=== PATIENT | female | born 1985 | race Caucasian/White ===

== ENCOUNTER 2019-03-31 19:07 | Emergency (ER) | payer BC ==
[~2019-03-31] VITALS: Ht 157.5 cm; Wt 81.6 kg
[2019-03-31] MEDS ORDERED: IV NORMAL SALINE 1,000ML 1,000 ML IV SCH (19:29)
[2019-03-31] MEDS ORDERED: ONDANSETRON PF 4 MG/2 ML VIAL. IV ONE (19:45)
[2019-03-31 19:58] LABS: BASO # 0.1 x10^3/uL (0.0-0.2); BASO % 1 % (0-3); EOS # 0.3 x10^3/uL (0.0-0.7); EOS % 3 % (0-3); HEMATOCRIT 40.6 % (36.0-47.0); HEMOGLOBIN 14.1 g/dL (12.0-15.5); LYMPH # 4.2 x10^3/uL (1.0-4.8); LYMPH % 42 % (24-48); MEAN CORPUSCULAR HEMOGLOBIN 32 pg (25-35); MEAN CORPUSCULAR HGB CONC 35 g/dL (31-37); MEAN CORPUSCULAR VOLUME 91 fL (79-100); MONO # 0.7 x10^3/uL (0.0-1.1); MONO % 7 % (0-9); NEUT # 4.6 x10^3uL (1.8-7.7); NEUT % 47 % (31-73); PLATELET COUNT 334 x10^3/uL (140-400); RED BLOOD COUNT 4.47 x10^6/uL (3.50-5.40); RED CELL DISTRIBUTION WIDTH 12.5 % (11.5-14.5); WHITE BLOOD COUNT 9.9 x10^3/uL (4.0-11.0)
[2019-03-31] MEDS ORDERED: IOHEXOL 300 MG/ML 75 ML VIAL. IV ONE (20:00)
[2019-03-31 20:03] LABS: CLARITY,URINE CLEAR; COLOR,URINE STRAW
[2019-03-31 20:04] LABS: BACTERIA,URINE 0 /HPF (0-FEW); BILIRUBIN,URINE NEG (NEG); GLUCOSE,URINE NEG (NEG); NITRITE,URINE NEG (NEG); RBC,URINE 0 /HPF (0-2); SQUAMOUS EPITHELIAL CELL,UR OCC /LPF; UROBILINOGEN,URINE 0.2 mg/dL (0.2 mg/dL); WBC,URINE 0 /HPF (0-4)
[2019-03-31 20:22] VITALS: BP 115/65
[2019-03-31 20:23] LABS: ALBUMIN 3.9 g/dL (3.4-5.0); ALBUMIN/GLOBULIN RATIO 1.2 (1.0-1.7); CALCIUM 8.8 mg/dL (8.5-10.1); CREATININE 0.8 mg/dL (0.6-1.0); GFR 83.7; POTASSIUM 3.8 mmol/L (3.5-5.1); TOTAL BILIRUBIN 0.3 mg/dL (0.2-1.0); TOTAL PROTEIN 7.1 g/dL (6.4-8.2)
[2019-03-31] MEDS ORDERED: KETOROLAC 30 MG/ML VIAL. ONE (20:52)
[2019-03-31] MEDS ORDERED: KETOROLAC 30 MG/ML VIAL. IV ONE (21:00)
--- NOTE | 2019-03-31 21:03 | RAD ---
EXAM: Abdomen and pelvis CT with intravenous contrast. HISTORY: Pain. Nausea. Diarrhea. TECHNIQUE: Computed tomographic images of the abdomen and pelvis were obtained following the administration of 80 cc Omnipaque 300 intravenous contrast. Multiplanar reformatting was performed. *One or more of the following individualized dose reduction techniques were utilized for this examination: 1. Automated exposure control. 2. Adjustment of the mA and/or kV according to patient size. 3. Use of iterative reconstruction technique. COMPARISON: None. FINDINGS: Evaluation of the lower thorax demonstrates minimal posterior dependent and basilar atelectasis. No hepatic lesion is seen. The gallbladder is surgically absent. The pancreas, spleen and adrenal glands are unremarkable. The renal collecting system is prominent, without evidence of obstruction. This is likely due to the hydration status the patient. No abnormally dilated or thickened loop of bowel seen. There is no appendicitis. There is no obstruction. The uterus is unremarkable. There are multiple ovarian follicles. There is a dominant right ovarian follicle/likely cyst measuring 1.4 cm. There is trace pelvic free fluid. There is no lymphadenopathy. There is no suspicious osseous lesion. There is a suspected tiny hemangioma within the inferior aspect of L4 and bone island within T12. IMPRESSION: No acute abdominal or pelvic finding. Electronically signed by: Kristi Elmore MD (03/31/2019 9:00 PM) [facility]
[2019-03-31] MEDS ORDERED: DIPH1TAB PO (21:11)
[2019-03-31] MEDS ORDERED: ONDA4TAB7 PO (21:11)
--- NOTE | 2019-03-31 21:14 | PHYS DOC ---
Past History Past Medical History: Anxiety Past Surgical History: Cholecystectomy, Tonsillectomy, Tubal ligation, Other Alcohol Use: Rarely Drug Use: None Adult General Chief Complaint Chief Complaint: ABDOMINAL PAIN HPI HPI Patient is a 33-year-old female who presents with complaint of right upper quadrant abdominal pain that has been intermittent for the last couple of days along with diarrhea. Patient states that she has had a few episodes of diarrhea each day since onset. She admits to nausea but is had no vomiting. She states that at its worst the pain is been an 8 out of 10 but currently she states is only a 1-2 out of 10. She describes it as just vague discomfort at this time but states that when it comes, it's like a knife going into her abdomen. She does indicate that pain is worsened with certain movements and very deep breathing when the pain is present.[] Review of Systems Review of Systems Constitutional: Denies fever or chills [] Respiratory: Denies cough or shortness of breath [] Cardiovascular: No additional information not addressed in HPI [] GI: Complains of abdominal pain with nausea and diarrhea [] Integument: Denies rash or skin lesions [] Neurologic: Denies headache, focal weakness or sensory changes [] All other systems were reviewed and found to be within normal limits, except as documented in this note. Current Medications Current Medications Current Medications Medications (Trade) Dose Ordered Sig/Cintia Start Time Stop Time Status Last Admin Dose Admin Fentanyl Citrate (Fentanyl 2ml Vial) 50 mcg 1X ONCE 03/31/19 21:00 03/31/19 21:00 DC Iohexol (Omnipaque 300 Mg/ml) 75 ml 1X ONCE 03/31/19 20:00 03/31/19 20:01 DC 03/31/19 20:34 75 ML Ketorolac Tromethamine (Toradol 30mg Vial) 30 mg STK-MED ONCE 03/31/19 20:52 03/31/19 20:53 DC Ondansetron HCl (Zofran) 4 mg 1X ONCE 03/31/19 19:45 03/31/19 19:46 DC 03/31/19 19:46 4 MG Sodium Chloride 1,000 ml @ 1,000 mls/hr Q1H 03/31/19 19:29 03/31/19 20:28 DC 03/31/19 19:45 1,000 MLS/HR Allergies Allergies Allergies Coded Allergies Type Severity Reaction Last Updated Verified No Known Drug Allergies 03/31/19 No Physical Exam Physical Exam Constitutional: Well developed, well nourished, no acute distress, non-toxic appearance. [] HENT: Normocephalic, atraumatic, bilateral external ears normal, oropharynx moist, no oral exudates, nose normal. [] Eyes: PERRLA, EOMI, conjunctiva normal, no discharge. [] Neck: Normal range of motion, no tenderness, supple, no stridor. [] Cardiovascular: Regular rate and rhythm[] Lungs & Thorax: Bilateral breath sounds clear to auscultation [] Abdomen: Bowel sounds normal, soft, no tenderness. [] Skin: Warm, dry, no erythema, no rash. [] Extremities: No tenderness, no cyanosis, no clubbing, ROM intact. [] Neurologic: Alert and oriented X 3, no focal deficits noted. [] Current Patient Data Vital Signs Vital Signs Date Time Temp Pulse Resp B/P (MAP) Pulse Ox O2 Delivery O2 Flow Rate FiO2 03/31/19 20:22 74 18 115/65 (82) 100 Room Air 03/31/19 19:15 98.0 Lab Results Laboratory Tests Test 03/31/19 19:15 03/31/19 19:26 03/31/19 19:45 Urine Collection Type Unknown Urine Color Straw Urine Clarity Clear Urine pH 5.0 Urine Specific Tebbetts <=1.005 Urine Protein Neg (NEG-TRACE) Urine Glucose (UA) Neg mg/dL (NEG) Urine Ketones (Stick) Neg mg/dL (NEG) Urine Blood Neg (NEG) Urine Nitrite Neg (NEG) Urine Bilirubin Neg (NEG) Urine Urobilinogen Dipstick 0.2 mg/dL (0.2 mg/dL) Urine Leukocyte Esterase Neg (NEG) Urine RBC 0 /HPF (0-2) Urine WBC 0 /HPF (0-4) Urine Squamous Epithelial Cells Occ /LPF Urine Bacteria 0 /HPF (0-FEW) POC Urine HCG, Qualitative hcg negative (Negative) White Blood Count 9.9 x10^3/uL (4.0-11.0) Red Blood Count 4.47 x10^6/uL (3.50-5.40) Hemoglobin 14.1 g/dL (12.0-15.5) Hematocrit 40.6 % (36.0-47.0) Mean Corpuscular Volume 91 fL (79-100) Mean Corpuscular Hemoglobin 32 pg (25-35) Mean Corpuscular Hemoglobin Concent 35 g/dL (31-37) Red Cell Distribution Width 12.5 % (11.5-14.5) Platelet Count 334 x10^3/uL (140-400) Neutrophils (%) (Auto) 47 % (31-73) Lymphocytes (%) (Auto) 42 % (24-48) Monocytes (%) (Auto) 7 % (0-9) Eosinophils (%) (Auto) 3 % (0-3) Basophils (%) (Auto) 1 % (0-3) Neutrophils # (Auto) 4.6 x10^3uL (1.8-7.7) Lymphocytes # (Auto) 4.2 x10^3/uL (1.0-4.8) Monocytes # (Auto) 0.7 x10^3/uL (0.0-1.1) Eosinophils # (Auto) 0.3 x10^3/uL (0.0-0.7) Basophils # (Auto) 0.1 x10^3/uL (0.0-0.2) Sodium Level 139 mmol/L (136-145) Potassium Level 3.8 mmol/L (3.5-5.1) Chloride Level 103 mmol/L (98-107) Carbon Dioxide Level 25 mmol/L (21-32) Anion Gap 11 (6-14) Blood Urea Nitrogen 7 mg/dL (7-20) Creatinine 0.8 mg/dL (0.6-1.0) Estimated GFR (Cockcroft-Gault) 83.7 BUN/Creatinine Ratio 9 (6-20) Glucose Level 86 mg/dL (70-99) Calcium Level 8.8 mg/dL (8.5-10.1) Total Bilirubin 0.3 mg/dL (0.2-1.0) Aspartate Amino Transferase (AST) 14 U/L (15-37) L Alanine Aminotransferase (ALT) 22 U/L (14-59) Alkaline Phosphatase 73 U/L (46-116) Total Protein 7.1 g/dL (6.4-8.2) Albumin 3.9 g/dL (3.4-5.0) Albumin/Globulin Ratio 1.2 (1.0-1.7) Lipase 111 U/L (73-393) EKG EKG [] Radiology/Procedures Radiology/Procedures [] Impressions: PROCEDURE: CT ABD PELV W/ IV CONTRST ONLY EXAM: Abdomen and pelvis CT with intravenous contrast. HISTORY: Pain. Nausea. Diarrhea. TECHNIQUE: Computed tomographic images of the abdomen and pelvis were obtained following the administration of 80 cc Omnipaque 300 intravenous contrast. Multiplanar reformatting was performed. *One or more of the following individualized dose reduction techniques were utilized for this examination: 1. Automated exposure control. 2. Adjustment of the mA and/or kV according to patient size. 3. Use of iterative reconstruction technique. COMPARISON: None. FINDINGS: Evaluation of the lower thorax demonstrates minimal posterior dependent and basilar atelectasis. No hepatic lesion is seen. The gallbladder is surgically absent. The pancreas, spleen and adrenal glands are unremarkable. The renal collecting system is prominent, without evidence of obstruction. This is likely due to the hydration status the patient. No abnormally dilated or thickened loop of bowel seen. There is no appendicitis. There is no obstruction. The uterus is unremarkable. There are multiple ovarian follicles. There is a dominant right ovarian follicle/likely cyst measuring 1.4 cm. There is trace pelvic free fluid. There is no lymphadenopathy. There is no suspicious osseous lesion. There is a suspected tiny hemangioma within the inferior aspect of L4 and bone island within T12. IMPRESSION: No acute abdominal or pelvic finding. Electronically signed by: Kristi Elmore MD (03/31/2019 9:00 PM) [facility] Course & Med Decision Making Course & Med Decision Making Pertinent Labs and Imaging studies reviewed. (See chart for details) [] Dragon Disclaimer Dragon Disclaimer This electronic medical record was generated, in whole or in part, using a voice recognition dictation system. Departure Departure: Impression: Primary Impression: Gastroenteritis Disposition: 01 HOME, SELF-CARE Condition: STABLE Referrals: PCP,UNKNOWN (PCP) Patient Instructions: Viral Gastroenteritis Scripts Diphenoxylate Hcl/Atropine (LOMOTIL TABLET) 1 Each Tablet 1 TAB PO TID PRN for DIARRHEA, #15 TAB Prov: STEPHANIE RICKETTS Jr. DO 03/31/19 Ondansetron Hcl (ZOFRAN) 4 Mg Tablet 4 MG PO Q6HRS PRN for NAUSEA, #10 TAB Prov: STEPHANIE RICKETTS Jr. DO 03/31/19 STEPHANIE RICKETTS Jr. DO Mar 31, 2019 21:14
[2019-03-31] MEDS ORDERED: DIPHENOXYLATE/ATROPINE TABLET. PO ONE (21:30)
== END 2019-03-31 21:25 | disposition home or self-care (01) ==
LOC: ER 19:07
DX: K52.9 Noninfective gastroenteritis and colitis, unspecified (principal); F41.9 Anxiety disorder, unspecified; Z90.49 Acquired absence of other specified parts of digestive tract; Z98.51 Tubal ligation status
CPT/HCPCS: 36415; 74177; 80053; 81001; 81025; 83690; 85025; 96361; 96374; 96375; 99285; J1885; J2405; Q9967; J7030

== ENCOUNTER 2019-05-05 16:16 | Emergency (ER) | payer BC ==
[~2019-05-05] VITALS: Ht 157.5 cm; Wt 81.6 kg
[~2019-05-05 16:16] MED LIST: DIPH1TAB PO; ONDA4TAB7 PO
[2019-05-05 16:25] VITALS: BP 126/74
[2019-05-05] MEDS ORDERED: HYDR-3165 PO (16:50)
[2019-05-05] MEDS ORDERED: HYDR30CR61 TP (16:50)
[2019-05-05] MEDS ORDERED: LIDO15SO2 TOP (16:50)
--- NOTE | 2019-05-05 16:51 | PHYS DOC ---
Past History Past Medical History: Anxiety Past Surgical History: Cholecystectomy, Tonsillectomy, Tubal ligation, Other Alcohol Use: Rarely Drug Use: None Adult General Chief Complaint Chief Complaint: HEMORRHOIDS HPI HPI Patient is a 33-year-old female who presents with complaint of hemorrhoids for the last couple of weeks. Patient states that she has had intermittent bleeding from the hemorrhoids and she has tried just about every [id number] remedy that she can think to try without significant improvement. She rates pain in her bottom as moderate and states that pain is worsened when she sits down. She also states that pain is worsened with bowel movements.[] Review of Systems Review of Systems Constitutional: Denies fever or chills [] Respiratory: Denies cough or shortness of breath [] Cardiovascular: No additional information not addressed in HPI [] GI: Denies abdominal pain, nausea, vomiting or diarrhea. Positive hemorrhoids. [] Integument: Denies rash or skin lesions [] Allergies Allergies Allergies Coded Allergies Type Severity Reaction Last Updated Verified No Known Drug Allergies 03/31/19 No Physical Exam Physical Exam Constitutional: Well developed, well nourished, no acute distress, non-toxic appearance. [] Cardiovascular:Heart rate regular rhythm, no murmur [] Lungs & Thorax: Bilateral breath sounds clear to auscultation [] Abdomen: Bowel sounds normal, soft. Rectal exam performed with nurse petroleum engineer present and demonstrates small thrombosed hemorrhoid with small amount of bleeding present. [] Skin: Warm, dry, no erythema, no rash. [] EKG EKG [] Radiology/Procedures Radiology/Procedures [] Course & Med Decision Making Course & Med Decision Making Pertinent Labs and Imaging studies reviewed. (See chart for details) [] Dragon Disclaimer Dragon Disclaimer This electronic medical record was generated, in whole or in part, using a voice recognition dictation system. Departure Departure: Impression: Primary Impression: Thrombosed hemorrhoids Disposition: HOME, SELF-CARE Condition: STABLE Referrals: PCP,NO (PCP) Patient Instructions: Hemorrhoids Scripts Lidocaine HCl (Lidocaine HCl Viscous) 15 Ml Solution 1 ML TOP Q2HR PRN for PAIN, #100 ML Prov: STEPHANIE RICKETTS Jr. DO 05/05/19 Hydrocodone Bit/Acetaminophen (NORCO 5-325 TABLET) 1 Each Tablet 1 TAB PO PRN Q6HRS PRN for PAIN, #12 TAB 0 Refills Prov: STEPHANIE RICKETTS Jr. DO 05/05/19 Hydrocortisone (ANUSOL-HC) 30 Gm Cream..g. 1 CHRISTA TP BID for hemorrhoids, #30 GM 1 Refill Prov: STEPHANIE RICKETTS Jr. DO 05/05/19 STEPHANIE RICKETTS Jr. DO May 05, 2019 16:51
== END 2019-05-05 17:02 | disposition home or self-care (01) ==
LOC: ER 16:16
DX: K64.5 Perianal venous thrombosis (principal)
CPT/HCPCS: 99283

== ENCOUNTER 2020-08-08 12:25 | Emergency (ER) | payer BC ==
[~2020-08-08] VITALS: Ht 157.5 cm; Wt 82.0 kg
[~2020-08-08 12:25] MED LIST changes: +HYDR-3165 PO; +HYDR30CR61 TP; +LIDO20SO10 TOP
--- NOTE | 2020-08-08 12:59 | PHYS DOC ---
Past History Past Medical History: Anxiety Past Surgical History: Cholecystectomy, Tubal ligation Smoking: Cigarettes Alcohol Use: Occasionally Drug Use: None General Adult EDM: Chief Complaint: ABDOMINAL PAIN HPI: HPI: Patient is a 35 y/o female with a history of tubal ligation, who presents to the ED with sharp left suprapubic and flank pain that started yesterday along with her menstrual period. She also states she has had heavy bleeding where she bled through her tampon overnight which is unusual for her. Associated nausea. She reports that pain radiates around her lower abdomen to her back. Pain is worsened after she sits for long periods of time, denies any alleviating factors. Denies any vomiting, chest pain, SOB. Severity rated at a 8/10. Review of Systems: Review of Systems: Constitutional: Denies fever or chills Eyes: Denies redness or eye pain HENT: Denies nasal congestion or sore throat Respiratory: Denies cough or shortness of breath Cardiovascular: Denies chest pain or palpitations GI: Reports lower abdominal pain and nausea, Reports Flank Pain; Denies vomiting : Reports heavy vaginal bleeding, Denies dysuria Musculoskeletal: Denies back pain or joint pain Integument: Denies rash or skin lesions Neurologic: Denies headache, focal weakness or sensory changes Complete systems were reviewed and found to be within normal limits, except as documented in this note. Current Medications: Current Meds: Current Medications Medications (Trade) Dose Ordered Sig/Cintia Start Time Stop Time Status Last Admin Dose Admin Ketorolac Tromethamine (Toradol 15mg Vial) 15 mg 1X ONCE 08/08/20 13:00 08/08/20 13:01 UNV Ondansetron HCl (Zofran) 4 mg 1X ONCE 08/08/20 13:00 08/08/20 13:01 UNV Sodium Chloride 1,000 ml @ 1,000 mls/hr 1X ONCE 08/08/20 13:00 08/08/20 13:59 UNV Allergies: Allergies: Allergies Uncoded Allergies Type Severity Reaction Last Updated Verified WASP STING Allergy Unknown 08/08/20 Physical Exam: PE: Constitutional: Well developed, well nourished, mild acute distress, non-toxic appearance HENT: Normocephalic, atraumatic Eyes: PERRL, EOMI, conjunctiva normal, no discharge Neck: Normal range of motion, no tenderness, supple Lungs & Thorax: No respiratory distress, equal chest rise and fall Abdomen: Soft, tenderness to palpation on left suprapubic abdomen Skin: Warm, dry, no erythema, no rash Back: No tenderness, Left sided CVA tenderness, + Kingsley's punch on the right Extremities: No tenderness, ROM intact, no edema Genitourinary Exam: Pelvic exam, + cervical motion tenderness, bloody discharge from cervical os and in vaginal canal, no adnexal masses palpated Neurologic: Alert and oriented X 3, normal motor function, normal sensory function, no focal deficits noted Psychologic: Affect normal, judgment normal Current Patient Data: Vital Signs: Vital Signs Date Time Temp Pulse Resp B/P (MAP) Pulse Ox O2 Delivery O2 Flow Rate FiO2 08/08/20 12:33 98.4 75 16 127/93 (104) 100 Radiology/Procedures: Radiology/Procedures: PROCEDURE: US PELVIS W/TV US PELVIS W/TV History: Left adnexa tenderness, menorrhagia Comparison: None. Findings: Multiple transabdominal sonographic images of the pelvis are submitted. Uterus measured 8.4 x 4.5 x 6.3 cm. Right ovary measured 2.6 x 1.4 x 1.7 cm. Left ovary measured 2.7 x 2 x 2.4 cm. There is normal color flow of the ovaries. Transvaginal ultrasound: Multiple transvaginal sonographic images of the pelvis are submitted. There is a hypoechoic lesion with associated septation or adjacent cyst of the anterior vaginal canal, some internal echoes. This in greatest dimension measures about 1.8 x 1.1 x 1.3 cm, no internal vascularity color Doppler imaging. Uterus measured 8.7 x 4.2 x 5.4 cm. Endometrium measured about 0.7 cm in thickness. There is an oblong focus of hypoechogenicity of the lower uterine segment and cervical canal about 1.5 x 0.5 x 0.5 cm in size not associated with significant vascularity color Doppler imaging. Right ovary measured 2.8 x 1.8 x 1.8 cm with normal low resistance vascularity. Left ovary measured 3.1 x 1.6 x 1.3 cm with normal low resistance vascularity. There are small follicles of the bilateral ovaries. No free fluid is demonstrated. Impression: 1. Endometrium is not thickened. There are small follicles of the bilateral ovaries, no free fluid. There is small septated cystic focus of the lower uterine segment and cervical canal likely small collection of fluid or cyst. There is also cluster of slightly complex cysts of the vaginal canal. Electronically signed by: Noel Hercules MD (08/08/2020 1:48 PM) [id number] Course & Med Decision Making: Course & Med Decision Making Pertinent Labs and Imaging studies reviewed. (See chart for details) Patient is a 35 y/o female with a history of tubal ligation who presents to the ED with left suprapubic and flank pain that started last night since her period. Associated nausea and menorrhagia. Pelvic ultrasound reveals complex cysts. Performed pelvic exam, planned for discharge. Patient stable for discharge with outpatient follow-up with PCP. Discussed f indings and plan with patient, who acknowledges understanding and agreement. Dragon Disclaimer: Dragon Disclaimer: This electronic medical record was generated, in whole or in part, using a voice recognition dictation system. Departure Departure: Impression: Primary Impression: Ovarian cyst Qualified Codes: N83.209 - Unspecified ovarian cyst, unspecified side Additional Impression: Menorrhagia Qualified Codes: N92.1 - Excessive and frequent menstruation with irregular cycle Disposition: 01 DC HOME SELF CARE/HOMELESS Condition: STABLE Referrals: ELLIE MCCANN (PCP) Patient Instructions: Menorrhagia, [id number], Ovarian Cyst, [id number] Additional Instructions: Please follow closely with Dr. Milan Polanco Address: [address] [place] [address] [id number], [place] [address] Scripts Hydrocodone Bit/Acetaminophen (NORCO 5-325 TABLET) 1 Each Tablet 0.5-1 TAB PO Q6HRS PRN for PAIN, #10 TAB Prov: NAVI BARRON DO 08/08/20 NAVI BARRON DO Aug 08, 2020 12:59
[2020-08-08] MEDS ORDERED: IV NORMAL SALINE 1,000ML 1,000 ML IV ONE (13:00)
[2020-08-08] MEDS ORDERED: ONDANSETRON PF 4 MG/2 ML VIAL. IVP ONE (13:00)
[2020-08-08] MEDS ORDERED: KETOROLAC 15 MG/ML VIAL. IVP ONE (13:00)
[2020-08-08 13:29] LABS: BILIRUBIN,URINE NEG (NEG); CLARITY,URINE CLEAR; COLOR,URINE STRAW; GLUCOSE,URINE NEG (NEG)
[2020-08-08 13:30] LABS: BACTERIA,URINE 0 /HPF (0-FEW); NITRITE,URINE NEG (NEG); SQUAMOUS EPITHELIAL CELL,UR FEW /LPF; UROBILINOGEN,URINE 0.2 mg/dL (0.2 mg/dL); WBC,URINE OCC /HPF (0-4)
--- NOTE | 2020-08-08 13:51 | RAD ---
US PELVIS W/TV History: Left adnexa tenderness, menorrhagia Comparison: None. Findings: Multiple transabdominal sonographic images of the pelvis are submitted. Uterus measured 8.4 x 4.5 x 6.3 cm. Right ovary measured 2.6 x 1.4 x 1.7 cm. Left ovary measured 2.7 x 2 x 2.4 cm. There is normal color flow of the ovaries. Transvaginal ultrasound: Multiple transvaginal sonographic images of the pelvis are submitted. There is a hypoechoic lesion with associated septation or adjacent cyst of the anterior vaginal canal, some internal echoes. This in greatest dimension measures about 1.8 x 1.1 x 1.3 cm, no internal vascularity color Doppler imaging. Uterus measured 8.7 x 4.2 x 5.4 cm. Endometrium measured about 0.7 cm in thickness. There is an oblong focus of hypoechogenicity of the lower uterine segment and cervical canal about 1.5 x 0.5 x 0.5 cm in size not associated with significant vascularity color Doppler imaging. Right ovary measured 2.8 x 1.8 x 1.8 cm with normal low resistance vascularity. Left ovary measured 3.1 x 1.6 x 1.3 cm with normal low resistance vascularity. There are small follicles of the bilateral ovaries. No free fluid is demonstrated. Impression: 1. Endometrium is not thickened. There are small follicles of the bilateral ovaries, no free fluid. There is small septated cystic focus of the lower uterine segment and cervical canal likely small collection of fluid or cyst. There is also cluster of slightly complex cysts of the vaginal canal. Electronically signed by: Noel Hercules MD (08/08/2020 1:48 PM) [id number]
[2020-08-08 14:00] LABS: BASO # 0.1 x10^3/uL (0.0-0.2); BASO % 1 % (0-3); EOS # 0.2 x10^3/uL (0.0-0.7); EOS % 2 % (0-3); HEMATOCRIT 43.3 % (36.0-47.0); HEMOGLOBIN 14.8 g/dL (12.0-15.5); LYMPH # 4.1 x10^3/uL (1.0-4.8); LYMPH % 45 % (24-48); MEAN CORPUSCULAR HEMOGLOBIN 32 pg (25-35); MEAN CORPUSCULAR HGB CONC 34 g/dL (31-37); MEAN CORPUSCULAR VOLUME 94 fL (79-100); MONO # 0.6 x10^3/uL (0.0-1.1); MONO % 7 % (0-9); NEUT # 4.2 x10^3uL (1.8-7.7); NEUT % 46 % (31-73); PLATELET COUNT 336 x10^3/uL (140-400); RED BLOOD COUNT 4.62 x10^6/uL (3.50-5.40); RED CELL DISTRIBUTION WIDTH 12.8 % (11.5-14.5); WHITE BLOOD COUNT 9.1 x10^3/uL (4.0-11.0)
[2020-08-08 14:11] LABS: CALCIUM 9.3 mg/dL (8.5-10.1); CREATININE 0.9 mg/dL (0.6-1.0); GFR 72.1; POTASSIUM 3.3 mmol/L (3.5-5.1)
[2020-08-08 14:17] LABS: ALBUMIN 4.2 g/dL (3.4-5.0); ALBUMIN/GLOBULIN RATIO 1.1 (1.0-1.7); TOTAL BILIRUBIN 0.2 mg/dL (0.2-1.0)
[2020-08-08] MEDS ORDERED: POTASSIUM CHLORIDE 20 MEQ TABLET.ER. PO ONE (15:45)
[2020-08-08] MEDS ORDERED: HYDR-3165 PO (17:01)
[2020-08-08 17:10] VITALS: BP 142/89
[2020-08-09 22:06] LABS: CHLAMYDIA PROBE Negative (Negative)
== END 2020-08-08 17:15 | disposition home or self-care (01) ==
LOC: ER 12:25
DX: N83.209 Unspecified ovarian cyst, unspecified side (principal); N92.1 Excessive and frequent menstruation with irregular cycle; F17.210 Nicotine dependence, cigarettes, uncomplicated; Z90.49 Acquired absence of other specified parts of digestive tract; Z98.51 Tubal ligation status; Z91.038 Other insect allergy status
CPT/HCPCS: 36415; 76830; 76856; 80053; 81001; 81025; 83690; 85025; 87491; 87591; 96361; 96374; 96375; 99284; J1885; J2405; J3010; J7030; Q0111

== ENCOUNTER 2020-09-25 20:09 | Emergency (ER) | payer BC ==
[~2020-09-25] VITALS: Ht 157.5 cm; Wt 8.0 kg
--- NOTE | 2020-09-25 20:12 | PHYS DOC ---
Past History Past Medical History: Anxiety, Bronchitis, Depression, Endometriosis, Ovarian Cyst Past Medical History History of dysfunctional uterine bleeding History of personality disorder Past Surgical History: Cholecystectomy, Tubal ligation Smoking: Cigarettes Alcohol Use: Occasionally Drug Use: None General Adult EDM: Chief Complaint: ALTERED MENTAL STATUS HPI: HPI: '.." No.." ...grunts...''' Patient is a 35 year old female who presents with above hx and complaints of mental status change. Patient currently hyperventilating. Patient reportedly very anxious on arrival paramedics and a poor historian. Currently a very poor historian. Does cross-react to noxious stimuli. Does move all extremities. Pt. mental status cleared after observation and fluids in the emergency department. Reportedly patient had an argument with his significant other before onset of symptoms. Patient declined elaboration of events prior to her symptoms.. Patient requesting discharge home. Patient denies she lives in an unsafe environment. Patient denies any history of domestic abuse. Patient has past medical history of anxiety disorder and panic attacks. Per family history patient has been diagnosed possible borderline personality. No history of recent travel. No specific ill contacts. No history of trauma. Patient has past history of ovarian cyst, menorrhagia, endometrosis. The patient does continue to smoke. Patient normally follows with Dr. Rome. Review of Systems: Review of Systems: Pt. initlal ROS symptoms limit due to pt. altered mental status. Constitutional: Denies fever or chills Eyes: Denies change in visual acuity HENT: Denies nasal congestion or sore throat Respiratory: Denies cough or shortness of breath Cardiovascular: Denies chest pain or edema GI: Denies abdominal pain, nausea, vomiting, bloody stools or diarrhea : Denies dysuria Musculoskeletal: Denies back pain or joint pain Integument: Denies rash Neurologic: Denies headache, focal weakness or sensory changes Endocrine: Denies polyuria or polydipsia Lymphatic: Denies swollen glands Psychiatric: Hx. depression and anxiety. Patient denies suicidal ideation. Patient denies homicidal ideation Family History: Family History: Noncontributory Current Medications: Current Meds: See nursing for home meds Allergies: Allergies: Allergies Uncoded Allergies Type Severity Reaction Last Updated Verified WASP STING Allergy Unknown 08/08/20 Physical Exam: PE: Constitutional: Appears in acute emotional distress, HENT: Normocephalic, atraumatic, bilateral external ears normal, oropharynx moist, no oral exudates, nose normal. Patient volitionally squeezes her eyes tightly shut. Has good gag. Eyes: PERRLA, EOMI, conjunctiva normal, no discharge. [] Neck: Normal range of motion, no tenderness, supple, no stridor. Trachea midline Cardiovascular: Tachycardia heart rate regular rhythm, no murmur [] Lungs & Thorax: Bilateral breath sounds equal at apex with scattered wheezes on auscultation . Patient hyperventilating. Abdomen: Bowel sounds normal, soft, no tenderness, no masses, no pulsatile masses. [Old surgery scars. Skin: Warm, dry, no erythema, no rash. Multiple tattoos Back: No tenderness, no CVA tenderness. [] Extremities: No tenderness, no cyanosis, no clubbing, ROM intact, no edema. [] Neurologic: Responds to noxious stimuli, cross reacts, patient moves all ext remities with noxious stimuli and cross reacts, . Patient initially generally uncooperative.. Re-exam for discharge. DTRs +2 patellar brachial. Workforce Services Representative equal. No drift. Patient ambulatory without problems. Psychologic: Affect appears to be very anxious and hyperventilating , psych assessment limited at this time. EKG: EKG: My interpretation EKG shows a sinus rhythm at 94 bpm. There is right axis. Some hypertrophic changes and a prolonged QT interval at 390 ms and a QT C at 488 ms. [] Radiology/Procedures: Radiology/Procedures: [[address] [address] IMAGING REPORT Signed PATIENT: ADAM GONZALES RACCOUNT: [id number] : 1985 LOCATION: ER AGE: 35 SEX: F EXAM STATUS: REG ER ORD. PHYSICIAN: VIRGILIO VERDIN MD REASON: dyspnea PROCEDURE: PORTABLE CHEST 1V EXAM: Chest, single view. HISTORY: Dyspnea. COMPARISON: None. FINDINGS: A frontal view of the chest is obtained. There is no infiltrate, pleural effusion or pneumothorax. The heart is normal in size. IMPRESSION: No acute pulmonary finding. Electronically signed by: Kristi Jeong MD (09/25/2020 9:10 PM) [facility] DICTATED AND SIGNED BY: KRISTI JEONG MD DATE: 09/25/202109 CC: ELLIE ROME; VIRGILIO VERDIN MD ~MTH0 0 ][place] [address] IMAGING REPORT Signed PATIENT: ADAM GONZALES RACCOUNT: [id number] : 1985 LOCATION: ER AGE: 35 SEX: F EXAM STATUS: REG ER ORD. PHYSICIAN: VIRGILIO VERDIN MD REASON: mental status change, FALLS PROCEDURE: CT HEAD AND CERVICAL SPINE WO EXAM: Head and cervical spine CT without contrast. HISTORY: Mental status changes.. TECHNIQUE: Computed tomographic images of the head were obtained without contrast. *One or more of the following individualized dose reduction techniques were utilized for this examination: 1. Automated exposure control. 2. Adjustment of the mA and/or kV according to patient size. 3. Use of iterative reconstruction technique. COMPARISON: None. FINDINGS: Head: There is no hemorrhage. There is no mass effect or midline shift. There is no hydrocephalus. The vizcaino-white matter differentiation pattern is intact. There is decreased right maxillary sinus size with mucosal thickening. This may be due to hypoplasia or the sequela of chronic sinusitis. There is fluid within the mastoid air cells. No calvarial lesion is seen. Cervical spine: There is mild anterolisthesis of C5 on C6. The vertebral bodies are normal in height and the disc spaces are preserved. There is multilevel facet arthropathy. The airways midline and mildly patent. The lung apices are unremarkable. There is no significant foraminal or central canal stenosis. IMPRESSION: 1. No acute intracranial finding or evidence of acute cervical spine trauma. 2. Mild degenerative change involving the cervical spine. Electronically signed by: Kristi Jeong MD (09/25/2020 9:17 PM) [facility] DICTATED AND SIGNED BY: KRISTI JEONG MD DATE: 09/25/202116 CC: ELLIE ROME; VIRGILIO VERDIN MD ~MTH0 0 Heart Score: HEART Score for Chest Pain: HEART Score for Chest Pain Response (Comments) Value History Moderately Suspicious 1 ECG Nonspecific Repolarizatio 1 Age < 45 0 Risk Factors 1 or 2 Risk Factors 1 Troponin < Normal Limit 0 Total 3 Risk Factors: Risk Factors: DM, Current or recent (<one month) smoker, HTN, HLP, family history of CAD, obesity. Risk Scores: Score 0 - 3: 2.5% MACE over next 6 weeks - Discharge Home Score 4 - 6: 20.3% MACE over next 6 weeks - Admit for Clinical Observation Score 7 - 10: 72.7% MACE over next 6 weeks - Early Invasive Strategies Course & Med Decision Making: Course & Med Decision Making Pertinent Labs and Imaging studies reviewed. (See chart for details) Pt. mental status cleared 2344. Now able to answer questions. Pt. requested to be discharge home with Kapil.( Boyfriend). Patient push fruit juices and vitamin C drinks. Patient to self isolate for the next 10 days. Patient wear a mask that covers her nose and mouth at all times when outside her home. Patient follow-up with primary care. Patient return if any concerns. Patient follow-up with counseling center. Impression: 1. Mental status change 2. Anxiety/panic disorder 3. Mild Hypokalemia 3.2 4. Mild Leukocytosis 5. Viral Syndrome 6. History of possible personality disorder/borderline personality [] Dragon Disclaimer: Dragon Disclaimer: This electronic medical record was generated, in whole or in part, using a voice recognition dictation system. Departure Departure: Referrals: ELLIE ROME (PCP) Dragon Disclaimer This chart was dictated in whole or in part using Voice Recognition software in a busy, high-work load, and often noisy Emergency Department environment. It may contain unintended and wholly unrecognized errors or omissions. Dragon Disclaimer This chart was dictated in whole or in part using Voice Recognition software in a busy, high-work load, and often noisy Emergency Department environment. It may contain unintended and wholly unrecognized errors or omissions. VIRGILIO VERDIN MD Sep 25, 2020 20:12
[2020-09-25] MEDS ORDERED: diphenhydrAMINE 50 MG/ML VIAL IV ONE (20:30)
[2020-09-25] MEDS ORDERED: IV RINGERS SOLUTION,LACTATED 1,000 ML IV SCH (20:30)
[2020-09-25] MEDS ORDERED: HALOPERIDOL LACT 5 MG/ML VIAL. IVP ONE (20:30)
[2020-09-25 20:52] LABS: BASO # 0.1 x10^3/uL (0.0-0.2); BASO % 1 % (0-3); EOS # 0.2 x10^3/uL (0.0-0.7); EOS % 2 % (0-3); HEMATOCRIT 41.7 % (36.0-47.0); HEMOGLOBIN 14.2 g/dL (12.0-15.5); LYMPH # 4.6 x10^3/uL (1.0-4.8); LYMPH % 36 % (24-48); MEAN CORPUSCULAR HEMOGLOBIN 31 pg (25-35); MEAN CORPUSCULAR HGB CONC 34 g/dL (31-37); MEAN CORPUSCULAR VOLUME 92 fL (79-100); MONO # 0.9 x10^3/uL (0.0-1.1); MONO % 7 % (0-9); NEUT # 6.8 x10^3uL (1.8-7.7); NEUT % 54 % (31-73); PLATELET COUNT 386 x10^3/uL (140-400); RED BLOOD COUNT 4.53 x10^6/uL (3.50-5.40); RED CELL DISTRIBUTION WIDTH 12.8 % (11.5-14.5); WHITE BLOOD COUNT 12.5 x10^3/uL (4.0-11.0)
[2020-09-25 21:09] LABS: BARBITURATES NEG (NEG); BENZODIAZEPINES NEG (NEG); CANNABINOIDS NEG (NEG); COCAINE NEG (NEG); METHADONE NEG (NEG); OPIATES NEG (NEG); PHENCYCLIDINE NEG (NEG)
[2020-09-25 21:11] LABS: AMPHETAMINE/METHAMPHETAMINE NEG (NEG)
[2020-09-25 21:12] LABS: CALCIUM 9.2 mg/dL (8.5-10.1); CREATININE 1.2 mg/dL (0.6-1.0); GFR 51.7; POTASSIUM 3.2 mmol/L (3.5-5.1)
--- NOTE | 2020-09-25 21:14 | RAD ---
EXAM: Chest, single view. HISTORY: Dyspnea. COMPARISON: None. FINDINGS: A frontal view of the chest is obtained. There is no infiltrate, pleural effusion or pneumothorax. The heart is normal in size. IMPRESSION: No acute pulmonary finding. Electronically signed by: Kristi Elmore MD (09/25/2020 9:10 PM) [facility]
--- NOTE | 2020-09-25 21:21 | RAD ---
EXAM: Head and cervical spine CT without contrast. HISTORY: Mental status changes.. TECHNIQUE: Computed tomographic images of the head were obtained without contrast. *One or more of the following individualized dose reduction techniques were utilized for this examination: 1. Automated exposure control. 2. Adjustment of the mA and/or kV according to patient size. 3. Use of iterative reconstruction technique. COMPARISON: None. FINDINGS: Head: There is no hemorrhage. There is no mass effect or midline shift. There is no hydrocephalus. The vizcaino-white matter differentiation pattern is intact. There is decreased right maxillary sinus size with mucosal thickening. This may be due to hypoplasia or the sequela of chronic sinusitis. There is fluid within the mastoid air cells. No calvarial lesion is seen. Cervical spine: There is mild anterolisthesis of C5 on C6. The vertebral bodies are normal in height and the disc spaces are preserved. There is multilevel facet arthropathy. The airways midline and mildly patent. The lung apices are unremarkable. There is no significant foraminal or central canal stenosis. IMPRESSION: 1. No acute intracranial finding or evidence of acute cervical spine trauma. 2. Mild degenerative change involving the cervical spine. Electronically signed by: Kristi Elmore MD (09/25/2020 9:17 PM) [facility]
[2020-09-25 21:22] LABS: ALBUMIN 4.2 g/dL (3.4-5.0); DIRECT BILIRUBIN 0.1 mg/dL (0.0-0.2); MAGNESIUM 1.9 mg/dL (1.8-2.4); TOTAL BILIRUBIN 0.4 mg/dL (0.2-1.0); TOTAL PROTEIN 8.1 g/dL (6.4-8.2)
[2020-09-25 21:37] LABS: BILIRUBIN,URINE NEG (NEG); CLARITY,URINE CLEAR; COLOR,URINE COLORLESS; GLUCOSE,URINE NEG (NEG)
[2020-09-25 21:38] LABS: BACTERIA,URINE 0 /HPF (0-FEW); NITRITE,URINE NEG (NEG); RBC,URINE 0 /HPF (0-2); SQUAMOUS EPITHELIAL CELL,UR OCC /LPF; UROBILINOGEN,URINE 0.2 mg/dL (0.2 mg/dL); WBC,URINE 0 /HPF (0-4)
--- NOTE | 2020-09-25 21:41 | EKG ---
[address] [address] Test Date: 2020-09-25 Test Time: 21:19:22 Pat Name: ADAM GONZALES Department: Room: Gender: F Hair Specialist: HERMELINDO : 1985 Requested By: VIRGILIO VERDIN Order Number: [id number] Reading MD: Jeremie Santiago Measurements Intervals [place] Rate: 94 P: 63 IL: 174 QRS: 94 QRSD: 92 T: 64 QT: 390 QTc: 488 Interpretive Statements SINUS RHYTHM RIGHTWARD AXIS PROLONGED QT Electronically Signed On 09-26-2020 10:33:39 SLURRY TANK OPERATOR by Jeremie Santiago
[2020-09-25 23:15] VITALS: BP 104/53
== END 2020-09-26 00:08 | disposition home or self-care (01) ==
LOC: ER 20:09
DX: R41.82 Altered mental status, unspecified (principal); B34.9 Viral infection, unspecified; D72.829 Elevated white blood cell count, unspecified; E87.6 Hypokalemia; F41.9 Anxiety disorder, unspecified; F32.9 Major depressive disorder, single episode, unspecified; F17.210 Nicotine dependence, cigarettes, uncomplicated; F60.9 Personality disorder, unspecified; Z90.49 Acquired absence of other specified parts of digestive tract; Z98.51 Tubal ligation status; Z88.8 Allergy status to other drugs, medicaments and biological substances
CPT/HCPCS: 36415; 70450; 71045; 72125; 80048; 80076; 80307; 81001; 82550; 83690; 83735; 83880; 84443; 84484; 85025; 85379; 85610; 85730; 93005; 96361; 96374; 96375; 99285; G0480; J1200; J2060; J7120

== ENCOUNTER 2022-01-30 15:39 | Emergency (ER) | payer BC ==
[~2022-01-30] VITALS: Ht 157.5 cm; Wt 90.4 kg
[2022-01-30] MEDS ORDERED: ONDANSETRON PF 4 MG/2 ML VIAL. IVP ONE (16:15)
[2022-01-30] MEDS ORDERED: IV NORMAL SALINE 1,000ML 1,000 ML IV SCH (16:15)
--- NOTE | 2022-01-30 16:15 | PHYS DOC ---
Past History Past Medical History: Anxiety, Bronchitis, Depression, Endometriosis, Ovarian Cyst Past Surgical History: Cholecystectomy, Tubal ligation Smoking: Cigarettes Alcohol Use: Occasionally Drug Use: None General Adult EDM: Chief Complaint: ABDOMINAL PAIN HPI: HPI: Patient is a 36-year-old female who presents to the emergency department for suprapubic abdominal pain with nausea and diarrhea that started this morning. Patient rates pain 3 out of 10. It does not radiate. No treatment prior to arrival. Patient reports that she has had 4 loose bowel movements today. She reports after her cholecystectomy she does have loose stools but has increased today. She reports pressure pain when urinating. She denies burning with urination, frequency or urgency, concern for STDs, vaginal discharge, blood in her stools or fevers, vomiting, vaginal bleeding. History of cholecystectomy and tubal ligation.] Review of Systems: Review of Systems: Constitutional: See HPI GI: See HPI : See HPI Allergies: Allergies: Allergies Uncoded Allergies Type Severity Reaction Last Updated Verified WASP STING Allergy Unknown 08/08/20 Physical Exam: PE: Constitutional: Well developed, well nourished, no acute distress, non-toxic appearance. [] HENT: Normocephalic, atraumatic, bilateral external ears normal, oropharynx moist, no oral exudates, nose normal. [] Eyes: PERRL, EOMI, conjunctiva normal, no discharge. [] Neck: Normal range of motion, no stridor Cardiovascular:Heart rate regular rhythm, no murmur [] Lungs & Thorax: Bilateral breath sounds clear to auscultation [] Abdomen: Bowel sounds normal, soft, suprapubic tenderness with palpation, mild right lower quadrant tenderness with palpation, no abdominal rigidity or guarding,, no masses, no pulsatile masses. [] Skin: Warm, dry, no erythema, no rash. [] Back: No tenderness, no CVA tenderness. [] Extremities: No tenderness, no cyanosis, no clubbing, ROM intact, no edema. [] Neurologic: Alert and oriented X 3, normal motor function, normal sensory function, no focal deficits noted. [] Psychologic: Affect normal, judgement normal, mood normal. [] Current Patient Data: Labs: Laboratory Tests Test 01/30/22 15:49 01/30/22 16:36 Bedside Urine HCG, Qualitative hcg negative White Blood Count 9.2 x10^3/uL Red Blood Count 4.44 x10^6/uL Hemoglobin 14.2 g/dL Hematocrit 40.6 % Mean Corpuscular Volume 91 fL Mean Corpuscular Hemoglobin 32 pg Mean Corpuscular Hemoglobin Concent 35 g/dL Red Cell Distribution Width 12.9 % Platelet Count 329 x10^3/uL Neutrophils (%) (Auto) 49 % Lymphocytes (%) (Auto) 41 % Monocytes (%) (Auto) 7 % Eosinophils (%) (Auto) 3 % Basophils (%) (Auto) 1 % Neutrophils # (Auto) 4.5 x10^3uL Lymphocytes # (Auto) 3.8 x10^3/uL Monocytes # (Auto) 0.6 x10^3/uL Eosinophils # (Auto) 0.3 x10^3/uL Basophils # (Auto) 0.1 x10^3/uL Sodium Level 138 mmol/L Potassium Level 3.9 mmol/L Chloride Level 103 mmol/L Carbon Dioxide Level 26 mmol/L Anion Gap 9 Blood Urea Nitrogen 17 mg/dL Creatinine 0.8 mg/dL Estimated GFR (Cockcroft-Gault) 82.1 BUN/Creatinine Ratio 21 Glucose Level 95 mg/dL Calcium Level 8.9 mg/dL Total Bilirubin 0.2 mg/dL Aspartate Amino Transf (AST/SGOT) 9 U/L Alanine Aminotransferase (ALT/SGPT) 21 U/L Alkaline Phosphatase 63 U/L Total Protein 7.2 g/dL Albumin 3.7 g/dL Albumin/Globulin Ratio 1.1 Lipase 93 U/L Current Medications Medications (Trade) Dose Ordered Sig/Cintia Route PRN Reason Start Time Stop Time Status Last Admin Dose Admin Sodium Chloride 1,000 ml @ 1,000 mls/hr Q1H IV 01/30/22 16:15 01/30/22 17:14 01/30/22 16:57 Fentanyl Citrate (Fentanyl 2ml Vial) 50 mcg 1X ONCE IVP 01/30/22 16:15 01/30/22 16:16 DC 01/30/22 16:58 Ondansetron HCl (Zofran) 4 mg 1X ONCE IVP 01/30/22 16:15 01/30/22 16:16 DC 01/30/22 16:59 Iohexol (Omnipaque 300 Mg/ml) 75 ml 1X ONCE IV 01/30/22 16:30 01/30/22 16:31 DC 01/30/22 16:41 Info (Do NOT chart on this entry -- for MONITORING) 1 each PRN DAILY PRN MC SEE COMMENTS 01/30/22 16:30 02/01/22 16:29 EKG: EKG: [] Radiology/Procedures: Radiology/Procedures: []REASON: suprapubic abdominal pain, rlq pain PROCEDURE: CT ABD PELV W/ IV CONTRST ONLY Exam: CT of abdomen and pelvis with contrast INDICATION: Suprapubic abdominal pain, right lower quadrant pain TECHNIQUE: Sequential axial images through the abdomen and pelvis obtained following the administration of 75 mm Isovue-370 IV contrast. Sagittal and coronal reformatted images were reconstructed from the axial data and reviewed. Exposure: One or more of the following in the visualized dose reduction techniques were utilized for this examination: 1. Automated exposure control 2. Adjustment of the MA and/or KV according to patient size 3. Use of iterative of reconstructive technique Comparisons: 03/31/2019 FINDINGS: Heart size is normal. No pericardial effusion. Visualized lung bases are clear. No pleural effusion. Liver, spleen, pancreas, and adrenals are unremarkable. Gallbladder surgically absent. Kidneys demonstrate symmetric enhancement. No perinephric inflammation or hydronephrosis. No renal or ureteral calculi are identified. Bladder is decompressed not well done. Uterus is nonenlarged. No abnormal adnexal mass. There is a long segment of mucosal hyperenhancement involving the sigmoid colon. Appendix is is not definitively identified. Small bowel is unremarkable. No free intra-abdominal air or fluid. No obstruction. Abdominal aorta has normal course and caliber. Abdominal vasculature is patent. No enlarged intra-abdominal lymph nodes are identified. No suspicious osseous lesions or acute fractures. IMPRESSION: Long segment mucosal hyperenhancement involving the sigmoid colon favored to be infectious or inflammatory in etiology. Electronically signed by: Matthew Mari MD (01/30/2022 5:09 PM) [facility] DICTATED AND SIGNED BY: MATTHEW MARI MD DATE: 01/30/221655 CC: ELLIE MCCANN; IRLANDA THURMAN SPICE FUMIGATOR ~ Heart Score: C/O Chest Pain: N/A Risk Factors: Risk Factors: DM, Current or recent (<one month) smoker, HTN, HLP, family history of CAD, obesity. Risk Scores: Score 0 - 3: 2.5% MACE over next 6 weeks - Discharge Home Score 4 - 6: 20.3% MACE over next 6 weeks - Admit for Clinical Observation Score 7 - 10: 72.7% MACE over next 6 weeks - Early Invasive Strategies Course & Med Decision Making: Course & Med Decision Making Pertinent Labs and Imaging studies reviewed. (See chart for details) [] Patient presents to the emergency department for suprapubic pain with nausea and diarrhea that started this morning. Work-up in the emergency department today consisted of blood work including lipase, urinalysis, urine test, CT imaging of abdomen and pelvis. Patient treated with IV fluids, nausea and pain medication. Patient's blood work was unremarkable, urinalysis not show any infection, negative hCG. Patient CT scan shows sigmoid hyperenhancement which could be infectious versus inflammatory. Patient will be discharged home with an antibiotic. Patient advised to take Imodium [id number] for her diarrhea. I discussed with patient all findings and diagnostic testing as well as the need to follow-up with PCP for further evaluation and treatment or return to the ER if any new or worsening symptoms. Strict return precautions were also discussed at length. Patient voiced understanding and agreement with the plan. Patient is hemodynamically stable at the time of disposition. Alie Disclaimer: Alie Disclaimer: This electronic medical record was generated, in whole or in part, using a voice recognition dictation system. Departure Departure: Impression: Primary Impression: Diarrhea Qualified Codes: R19.7 - Diarrhea, unspecified Additional Impression: Abdominal pain Qualified Codes: R10.30 - Lower abdominal pain, unspecified Disposition: HOME / SELF CARE / HOMELESS Condition: GOOD Referrals: ELLIE MCCANN (PCP) Patient Instructions: Diarrhea Additional Instructions: You are seen in the emergency department today for abdominal pain with diarrhea. You were noted to have possible infection in your intestines which could be a viral or bacterial. Which we will be treating with an antibiotic. Please start and finish the antibiotic completely. Increase your fluids. Take Imodium [id number] for your diarrhea. I would advise you to stick to a bland diet over the next 1 to 2 days. We recommend a brat diet which is bananas, rice, applesauce and toast. Avoid eating any spicy, greasy or fatty foods. Follow-up with your primary care provider tomorrow regarding your ER visit. Return to the emergency department if you develop high fevers refractory to treatment, worsening of your abdominal pain, intractable nausea or vomiting, blood in your stools or vomit or any new or worsening concerns. Scripts Ciprofloxacin Hcl (CIPROFLOXACIN HCL) 500 Mg Tablet 1 TAB PO BID for infection for 5 Days, #10 TAB 0 Refills Prov: IRLANDA THURMAN APRN 01/30/22 IRLANDA THURMAN APRN Jan 30, 2022 16:15
[2022-01-30] MEDS ORDERED: CONTRAST GIVEN. MC PRN (16:30)
[2022-01-30] MEDS ORDERED: IOHEXOL 300 MG/ML 75 ML VIAL. IV ONE (16:30)
[2022-01-30 16:54] LABS: BASO # 0.1 x10^3/uL (0.0-0.2); BASO % 1 % (0-3); EOS # 0.3 x10^3/uL (0.0-0.7); EOS % 3 % (0-3); HEMATOCRIT 40.6 % (36.0-47.0); HEMOGLOBIN 14.2 g/dL (12.0-15.5); LYMPH # 3.8 x10^3/uL (1.0-4.8); LYMPH % 41 % (24-48); MEAN CORPUSCULAR HEMOGLOBIN 32 pg (25-35); MEAN CORPUSCULAR HGB CONC 35 g/dL (31-37); MEAN CORPUSCULAR VOLUME 91 fL (79-100); MONO # 0.6 x10^3/uL (0.0-1.1); MONO % 7 % (0-9); NEUT # 4.5 x10^3uL (1.8-7.7); NEUT % 49 % (31-73); PLATELET COUNT 329 x10^3/uL (140-400); RED BLOOD COUNT 4.44 x10^6/uL (3.50-5.40); RED CELL DISTRIBUTION WIDTH 12.9 % (11.5-14.5); WHITE BLOOD COUNT 9.2 x10^3/uL (4.0-11.0)
[2022-01-30 17:02] LABS: CALCIUM 8.9 mg/dL (8.5-10.1); CREATININE 0.8 mg/dL (0.6-1.0); GFR 82.1; POTASSIUM 3.9 mmol/L (3.5-5.1)
[2022-01-30 17:08] LABS: ALBUMIN 3.7 g/dL (3.4-5.0); ALBUMIN/GLOBULIN RATIO 1.1 (1.0-1.7); TOTAL BILIRUBIN 0.2 mg/dL (0.2-1.0); TOTAL PROTEIN 7.2 g/dL (6.4-8.2)
--- NOTE | 2022-01-30 17:11 | RAD ---
Exam: CT of abdomen and pelvis with contrast INDICATION: Suprapubic abdominal pain, right lower quadrant pain TECHNIQUE: Sequential axial images through the abdomen and pelvis obtained following the administrati on of 75 mm Isovue-370 IV contrast. Sagittal and coronal reformatted images were reconstructed from t he axial data and reviewed. Exposure: One or more of the following in the visualized dose reduction techniques were utilized for this examination: 1. Automated exposure control 2. Adjustment of the MA and/or KV according to patient size 3. Use of iterative of reconstructive technique Comparisons: 03/31/2019 FINDINGS: Heart size is normal. No pericardial effusion. Visualized lung bases are clear. No pleural effusion. Liver, spleen, pancreas, and adrenals are unremarkable. Gallbladder surgically absent. Kidneys demonstrate symmetric enhancement. No perinephric inflammation or hydronephrosis. No renal or ureteral calculi are identified. Bladder is decompressed not well done. Uterus is nonenlarged. No abnormal adnexal mass. There is a long segment of mucosal hyperenhancement involving the sigmoid colon. Appendix is is not d efinitively identified. Small bowel is unremarkable. No free intra-abdominal air or fluid. No obstruc tion. Abdominal aorta has normal course and caliber. Abdominal vasculature is patent. No enlarged intra-abdominal lymph nodes are identified. No suspicious osseous lesions or acute fractures. IMPRESSION: Long segment mucosal hyperenhancement involving the sigmoid colon favored to be infectious or inflamm atory in etiology. Electronically signed by: Matthew Batres MD (01/30/2022 5:09 PM) [facility]
[2022-01-30 17:32] LABS: CLARITY,URINE CLEAR; COLOR,URINE YELLOW; GLUCOSE,URINE NEG (NEG); NITRITE,URINE NEG (NEG); UROBILINOGEN,URINE 0.2 mg/dL (0.2 mg/dL); WBC,URINE OCC /HPF (0-4)
[2022-01-30 17:33] LABS: BACTERIA,URINE 0 /HPF (0-FEW); SQUAMOUS EPITHELIAL CELL,UR MOD /LPF
[2022-01-30] MEDS ORDERED: CIPR500T2 PO (17:39)
[2022-01-30] MEDS ORDERED: DICYCLOMINE 20 MG/2 ML VIAL. IM ONE (17:45)
[2022-01-30 18:35] VITALS: BP 118/71
== END 2022-01-30 18:36 | disposition home or self-care (01) ==
LOC: ER 15:39
DX: R10.31 Right lower quadrant pain (principal); R30.0 Dysuria; R19.7 Diarrhea, unspecified; Z90.49 Acquired absence of other specified parts of digestive tract; F17.210 Nicotine dependence, cigarettes, uncomplicated; Z98.51 Tubal ligation status; Z91.030 Bee allergy status
CPT/HCPCS: 36415; 74177; 80053; 81001; 81025; 83690; 85025; 96361; 96372; 96374; 96375; 99285; J0500; J2405; J3010; J7030; Q9967